=== PATIENT | male | born 1955 | race Caucasian/White ===

== ENCOUNTER 2016-09-01 01:49 | Day surgery (SDC) | payer MEDICAID, MEDICARE ==
[2016-09-01] VITALS (14 sets, daily range): BP systolic 95–112; BP diastolic 58–76; PULSE 61–72; RESP 13–22; O2SAT 92–97
[~2016-09-01] VITALS: Ht 185.4 cm; Wt 84.0 kg
[~2016-09-01 01:49] MED LIST: ALBU8.5H2 INHALATION; ATOR20TA65 PO; BUPR75TA10 PO; CHOL200025 PO; FLUO40CA PO; FLUT12AE8 IH; FUR20 PO; LISI10TA PO; MELA3TAB35 PO; METO200T32 PO; SPIR25TA3 PO; SYMINH INHALATION; TAMS0.4C98 PO; TIOT18CA3 IH; WARF5TAB7 PO
[2016-09-01] MEDS ORDERED: 0.9% Sodium Chloride 1,000 ML ONE (09:56)
[2016-09-01 10:31] LABS: BASOPHILS % (AUTO) 0.2 % (0-3); EOSINOPHILS % (AUTO) 3.3 % (0-5); Mean Corpuscular Hemoglobin 27.3 pg (27.0-35.0); NEUTROPHILS % (AUTO) 78.2 % (40-74); Platelet Count 169 bil/L (150-400)
[2016-09-01 10:42] LABS: INR 2.18 ratio
[2016-09-01] MEDS ORDERED: ASPI-973 PO (10:54)
[2016-09-01] MEDS ORDERED: WARF5TAB7 PO (10:54)
--- NOTE | 2016-09-01 10:55 | NUR ---
Admit [facility] Admitted to [facility] 8 about 0950. VSS. Denies pain. Tele appears paced. IVs started and labs sent. Procedure and recovery reviewed and verbalizes understanding. Awaiting prosthetic lab technician.
[2016-09-01] MEDS ORDERED: Heparin 1,000 Units/500 mL NS Premix IV ONE (12:34)
[2016-09-01] MEDS ORDERED: Nitroglycerin 50,000 mcg/250 mL D5W Premix IV ONE (12:34)
[2016-09-01] MEDS ORDERED: Heparin 5,000 Units/500 mL NS Premix IV ONE (12:34)
[2016-09-01] MEDS ORDERED: Heparin 1,000 Unit/mL 10 mL Inj ONE (12:34)
[2016-09-01] MEDS ORDERED: fentaNYL-PF 50 mCg/mL 2 mL Inj ONE (12:50)
--- NOTE | 2016-09-01 13:53 | PCM.CVCATH ---
Cardiac Cath Report Date of Service Sep 01, 2016 Primary Indication Heart failure with reduced ejection fraction Procedure coronary angiography and left heart cath Vascular Access Right radial artery using 5 Fr slender sheath, closure with TR band. Diagnostic Catheters Left main: [place] 4.5, 5 Fr RCA: [place] 4.5, 5 Fr Procedure Details Coronary angiography details: The patient was brought to the cardiac catheterization lab in the fasting state. Patient was laid supine on the cardiac catheterization table and the right forearm was prepped and draped in the usual sterile fashion. One percent Xylocaine was infiltrated over the right radial artery. Vascular access was then achieved under ultrasound guidance. Guide wire was used to advance the catheter through the sheath and up into aortic sinuses. After coronary angiography was completed, guide wire was advanced through the catheter ahead of the tip of the catheter and the guide wire along with the catheter were pulled together out of the sheath. Medications/Fluoro Time Medications administered: 1.Fentanyl: 50 mcg IV 2. Midazolam: 2 mg IV 3. Heparin: 5000 units IV 4. Nitroglycerin: 100 mcg IA Fluoroscopy Time: 2.1 minutes, 459 mGy Contrast (Isovue): 45 mls Blood loss: 5 mls Findings 1) Coronary angiography: Co-dominance a. Left main is short and angiographically normal b. LAD is normal caliber with mild luminal irregularities c. LCx is large vessel with large obtuse marginal (OM) artery branches. Mild luminal irregularities present in the LCx and OM. d. RCA is normal caliber with 20% tubular stenosis in the proximal vessel and mild luminal irregularities. 2) Left Heart catheterization: a. LVEDP is normal at 12 mmHg. b. No significant transaortic gradient on catheter pull-back. Complications There were no periprocedural complications identified. Summary 1) Mild non-obstructive coronary artery disease 2) Normal left sided filling pressures and no transaortic gradient on catheter pull-back Recommendations 1) Continue with primary prevention of coronary artery disease 2) Maximize medical management of systolic heart failure copies to: Lang Chapin MD, Bhrigu R MD Sep 01, 2016 13:53
--- NOTE | 2016-09-01 14:01 | NUR ---
Received Received from warehouse general laborer about 1345. VSS. States minimal discomfort at IV sites. No signs of infiltration or phlebitis. Right wrist with strong pulse, no bleeding or hematoma. Taking po without nausea. Wrist elevated on pillow and precautions reviewed. Continue to monitor per orders.
[2016-09-01] MEDS ORDERED: Ondansetron 2 mg/mL 2 mL Inj ONE ×2 (15:34→17:52)
--- NOTE | 2016-09-01 17:04 | NUR ---
TR band/Bleeding Started decreasing pressure to TR band at 1545 per md order. At 1615 after removing 4ml total, pt. called and stated leaking. No hematoma and blood did not appear pulsatile but at least a ml present and new. 2cc air replaced and waited 30min. Now removing again.
--- NOTE | 2016-09-01 20:06 | NUR ---
Discharge Dr. Snowden called in several times to check on patient. Patient also experienced Nausea and vomiting x2 with Zofran 4mg IVP given times 2 with relief, see eMAR. TR band removed slowly per Dr. Snowden's orders. After one vomiting episode pt. clenched arm and some swelling noted above TR band but still soft. Removed completely about 1914 and does not seem to be a hematoma, though marked and instructed pt. and sister to monitor. Pt up and ambulated without changes and no further N+V. Discharge instructions reviewed with pt. and sister and both verbalize understanding, see sheets. IVs discontinued intact. Wrist splinted and sling placed. Discharged via w/c with sister and all belongings in no distress at 1999.
== END 2016-09-01 23:59 | disposition home or self-care (01) ==
LOC: SOUO 01:49
PROVIDERS: ATTEND Internal Medicine Cardiovascular Disease
DX: I50.20 Unspecified systolic (congestive) heart failure (principal); I34.0 Nonrheumatic mitral (valve) insufficiency; I25.10 Atherosclerotic heart disease of native coronary artery without angina pectoris; F12.20 Cannabis dependence, uncomplicated; I48.2 Chronic atrial fibrillation; Z95.810 Presence of automatic (implantable) cardiac defibrillator; Z79.01 Long term (current) use of anticoagulants; E78.00 Pure hypercholesterolemia, unspecified; J44.9 Chronic obstructive pulmonary disease, unspecified; F41.8 Other specified anxiety disorders; N40.0 Benign prostatic hyperplasia without lower urinary tract symptoms; Z98.890 Other specified postprocedural states; J45.909 Unspecified asthma, uncomplicated
CPT/HCPCS: 36415; 80048; 85025; 85610; 93458; 99152; 99153; C1769; C1887; C1894; J1644; J2250; J2405; J3010; Q9967